=== PATIENT | female | born 1930 | race Caucasian/White ===

== ENCOUNTER → 2017-01-30 | Outpatient (CLI) | payer MEDICARE ==
[~2017-01-30] MED LIST: ALLO100T30 PO; AMLO10TA2 PO; ATEN50TA41 PO; CHOL2000 PO; CYAN500T18 PO; DEXL60CA PO; DIAZ5TAB PO; FENO160T PO; FLUT1AER INH; FOLI0.8T2 PO; LOSA100T6 PO; MAGN200T PO; MONT10TA9 PO; OMEG500C3 PO; PRIM50TA PO; ZOLP10TA5 PO
== END | disposition home or self-care (01) ==
LOC: CFH 11:21
PROVIDERS: ATTEND Internal Medicine Nephrology
DX: I12.9 Hypertensive chronic kidney disease with stage 1 through stage 4 chronic kidney disease, or unspecified chronic kidney disease (principal); D63.1 Anemia in chronic kidney disease; N18.3 Chronic kidney disease, stage 3 (moderate); E55.9 Vitamin D deficiency, unspecified; R73.01 Impaired fasting glucose; R53.83 Other fatigue
CPT/HCPCS: 76770

== ENCOUNTER 2017-03-03 07:27 | Emergency (ER) | payer MEDICARE ==
[~2017-03-03] VITALS: Ht 154.9 cm; Wt 68.0 kg
[~2017-03-03 07:27] MED LIST changes: -DEXL60CA PO; +DEXL60CA2 PO
[2017-03-03 07:33] VITALS: BP 176/70
== END 2017-03-03 08:38 | disposition home or self-care (01) ==
LOC: ED 08:26
DX: B37.9 Candidiasis, unspecified (principal); B37.89 Other sites of candidiasis; B35.4 Tinea corporis; B35.6 Tinea cruris
CPT/HCPCS: 99283

== ENCOUNTER 2017-03-05 07:10 | Emergency (ER) | payer MEDICARE ==
[~2017-03-05] VITALS: Ht 152.4 cm; Wt 68.2 kg
[2017-03-05 07:18] VITALS: BP 192/74
== END 2017-03-05 09:15 | disposition home or self-care (01) ==
LOC: ED 08:22
DX: B37.0 Candidal stomatitis (principal); B35.4 Tinea corporis; Z88.5 Allergy status to narcotic agent
CPT/HCPCS: 99283

== ENCOUNTER → 2019-07-03 | Outpatient (CLI) | payer MEDICARE ==
[~2019-07-03] MED LIST changes: -AMLO10TA2 PO; +AMLO10TA8 PO; +LOSA100T14 PO; -LOSA100T6 PO; +THIA100T67 PO
== END | disposition home or self-care (01) ==
LOC: CFH 09:56
PROVIDERS: ATTEND Physician Assistant Medical
DX: I08.8 Other rheumatic multiple valve diseases (principal); I10 Essential (primary) hypertension; E78.5 Hyperlipidemia, unspecified; Z87.891 Personal history of nicotine dependence
CPT/HCPCS: 93306; 93356

== ENCOUNTER 2019-07-24 13:49 | Outpatient (CLI) | payer MEDICARE | END 2019-07-24 23:59 | disposition home or self-care (01) | LOC: CARD 13:49 | PROVIDERS: ATTEND Physician Assistant Medical | DX: J44.9 Chronic obstructive pulmonary disease, unspecified (principal); R06.00 Dyspnea, unspecified | CPT/HCPCS: 94060; 94726; 94729 ==

== ENCOUNTER 2019-08-29 10:47 | Outpatient (CLI) | payer MEDICARE ==
[~2019-08-29 10:47] MED LIST changes: +MONT10TA11 PO; -MONT10TA9 PO
== END 2019-08-29 23:59 | disposition home or self-care (01) ==
LOC: RAD 10:47
PROVIDERS: ATTEND Nurse Practitioner Family
DX: J98.4 Other disorders of lung (principal); R06.00 Dyspnea, unspecified; I34.0 Nonrheumatic mitral (valve) insufficiency
CPT/HCPCS: 71045; 78582; A9540; A9558

== ENCOUNTER 2019-10-30 20:21 | Emergency (ER) | payer MEDICARE ==
[~2019-10-30] VITALS: Ht 152.4 cm; Wt 58.0 kg
--- NOTE | 2019-10-30 20:42 | NUR ---
THIS IS A 88 YO F BIB EMS FROM HOME W/ C/O CONSTIPATION X1 DAY. HAD 1 LIQUID STOOL YESTERDAY, PT HAS PRESSURE COMING FROM BOTTOM. 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 DENIES ABD PAIN, BACK PAIN. PT REPORTS HX OF SBO. PT RESTING ON [employer] W/ CALL LIGHT IN REACH, HYPERTENSIVE, OTHER VS WDL. AWAITING XR.
--- NOTE | 2019-10-30 22:00 | NUR ---
PT ONLY TOLERATED 250ML OF ENEMA. NO BM AFTER. NOTIFIED.
--- NOTE | 2019-10-30 22:35 | NUR ---
PT TOLERATED 600 ML OF ENEMA. WILL NOTIFY .
[2019-10-30 23:08] VITALS: BP 156/52
--- NOTE | 2019-10-30 23:44 | NUR ---
Patient given discharge instructions and they have confirmed that they understand the instructions. Patient ambulatory with steady gait. Patient provided w/ taxi voucher.
== END 2019-10-30 23:46 | disposition home or self-care (01) ==
LOC: ED 23:00
DX: K59.00 Constipation, unspecified (principal); R10.84 Generalized abdominal pain
CPT/HCPCS: 74021; 99284

== ENCOUNTER 2020-01-03 13:44 | Emergency (ER) | payer MEDICARE ==
[~2020-01-03] VITALS: Ht 157.5 cm; Wt 55.0 kg
[2020-01-03 13:50] VITALS: BP 127/67
--- NOTE | 2020-01-03 15:04 | NUR ---
PT SITTING IN CHAIR WHILE AWAITING XRAY RESULTS.
[2020-01-03] MEDS ORDERED: PINK LADY ENEMA 490 ML BOTTLE PR ONE (15:30)
--- NOTE | 2020-01-03 16:02 | NUR ---
WAITING FOR [facility]Y. YULISA East BED COMFORTABLY
--- NOTE | 2020-01-03 16:50 | NUR ---
DELAY IN GETTING [facility] FROM PHARMACY. WHEN RECEIVED IT PT HAD ALREADY HAD A BOWEL MOVEMENT. [facility] NOT GIVEN
== END 2020-01-03 17:12 | disposition home or self-care (01) ==
LOC: ED 15:59
DX: K59.00 Constipation, unspecified (principal); Z87.891 Personal history of nicotine dependence
CPT/HCPCS: 74018; 99284

== ENCOUNTER 2020-09-30 15:05 | Emergency (ER) | payer MEDICARE ==
[~2020-09-30] VITALS: Ht 152.4 cm; Wt 57.7 kg
[~2020-09-30 15:05] MED LIST changes: +AMLO-211 PO; -AMLO10TA8 PO; -FOLI0.8T2 PO; +FOLI0.8T5 PO; -MONT10TA11 PO; +MONT10TA17 PO
--- NOTE | 2020-09-30 15:22 | NUR ---
EXTRUSION PROCESS OPERATOR: PT TO ROOM FROM LOBBY AT THIS TIME
[2020-09-30 15:36] LABS: BASOPHILS % (AUTO) 1 % (0-1); EOSINOPHILS % (AUTO) 1 % (1-7); LYMPHOCYTES % (AUTO) 17 % (22-44); MEAN CORPUSCULAR HEMOGLOBIN 32.8 pg (27.0-34.8); MEAN CORPUSCULAR HGB CONC 33.6 g/dL (32.4-35.8); MEAN PLATELET VOLUME 7.4 fL (7.4-10.4); MONOCYTES % (AUTO) 7 % (2-9); NEUTROPHILS % (AUTO) 74 % (42-75); PLATELET COUNT 312 x10^3/uL (130-400); RED BLOOD COUNT 4.13 x10^6/uL (3.82-5.3); RED CELL DISTRIBUTION WIDTH 13.7 % (9.6-15.2)
[2020-09-30 15:40] LABS: MD NO
[2020-09-30 15:46] LABS: ALANINE AMINOTRANSFERASE 43 U/L (12-78); ALBUMIN 3.7 g/dL (3.4-5.0); ANION GAP 8 mmol/L (5-15); CALCIUM 9.1 mg/dL (8.5-10.1); CHLORIDE 102 mmol/L (98-107); CREATININE 0.87 mg/dL (0.55-1.02)
[2020-09-30 15:50] LABS: ALKALINE PHOSPHATASE 69 U/L (45-117); BILIRUBIN,TOTAL 0.3 mg/dL (0.2-1.0); TOTAL PROTEIN 7.3 g/dL (6.4-8.2); TROPONIN I < 0.015 ng/mL (0.000-0.045)
--- NOTE | 2020-09-30 16:35 | NUR ---
PT HERE FOR REFILL OF SYMBACORT. PT DENIES ANY AT HOME RESCUE INHALER. PT ADVISED TO COME DOWN HERE BY PCP. PT IN ROOM ON 4 LPM O2 VIA NC.
[2020-09-30] MEDS ORDERED: ALBUTEROL/IPRATROPIUM 2.5MG/0.5MG, 3 ML ONE (16:57)
[2020-09-30 17:00] VITALS: BP 161/71
[2020-09-30] MEDS ORDERED: ALBUTEROL/IPRATROPIUM 2.5MG/0.5MG, 3 ML NPPB ONE (17:00)
--- NOTE | 2020-09-30 17:01 | NUR ---
BREAK RN: PT RESTING IN ROOM. VS STABLE. NO ACUTE DISTRESS NOTED. WILL CONTINUE TO MONITOR.
--- NOTE | 2020-09-30 17:25 | NUR ---
REPORT GIVE TO BRANDY SINGH
== END 2020-09-30 18:30 | disposition home or self-care (01) ==
LOC: ED 17:17
DX: J44.1 Chronic obstructive pulmonary disease with (acute) exacerbation (principal); R06.02 Shortness of breath; R06.00 Dyspnea, unspecified; R07.89 Other chest pain; R05 Cough; Z87.891 Personal history of nicotine dependence
CPT/HCPCS: 36415; 71045; 80053; 83735; 83880; 84484; 85025; 93005; 94640; 99285

== ENCOUNTER 2020-10-26 13:09 | Emergency (ER) | payer MEDICARE ==
[~2020-10-26] VITALS: Ht 152.4 cm; Wt 56.6 kg
[2020-10-26 14:14] LABS: BASOPHILS % (AUTO) 1 % (0-1); EOSINOPHILS % (AUTO) 1 % (1-7); LYMPHOCYTES % (AUTO) 12 % (22-44); MEAN CORPUSCULAR HEMOGLOBIN 32.6 pg (27.0-34.8); MEAN CORPUSCULAR HGB CONC 33.7 g/dL (32.4-35.8); MEAN PLATELET VOLUME 7.6 fL (7.4-10.4); MONOCYTES % (AUTO) 7 % (2-9); NEUTROPHILS % (AUTO) 80 % (42-75); PLATELET COUNT 294 x10^3/uL (130-400); RED BLOOD COUNT 4.32 x10^6/uL (3.82-5.3); RED CELL DISTRIBUTION WIDTH 13.4 % (9.6-15.2)
[2020-10-26 14:15] LABS: MD NO
[2020-10-26 14:26] LABS: ALANINE AMINOTRANSFERASE 37 U/L (12-78); ALBUMIN 3.8 g/dL (3.4-5.0); ANION GAP 7 mmol/L (5-15); CHLORIDE 104 mmol/L (98-107); CREATININE 0.89 mg/dL (0.55-1.02)
[2020-10-26 14:28] LABS: ALKALINE PHOSPHATASE 61 U/L (45-117); BILIRUBIN,TOTAL 0.3 mg/dL (0.2-1.0); TOTAL PROTEIN 7.5 g/dL (6.4-8.2)
--- NOTE | 2020-10-26 14:49 | NUR ---
macadam raker: pt from lobby to room 26
--- NOTE | 2020-10-26 15:17 | NUR ---
PT C/O OF CONSTIPATION FOR 3 DAYS. DENIES PAIN IN ABDOMEN. STATES TROUBLE URINATING. DENIES N/V. 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
--- NOTE | 2020-10-26 15:18 | NUR ---
PT ATTCHED TO MONITORS. VSS. PT IN NAD. CALL LLIGHT WITHIN REAch.
[2020-10-26] MEDS ORDERED: PINK LADY ENEMA 490 ML BOTTLE PR ONE (15:30)
--- NOTE | 2020-10-26 16:26 | NUR ---
PT RESTING IN BD AWAITING ENEMA. PTY IN NAD. ATTACYHED TO MONITORS. CALL LIGGHT WITHIN REACH.
--- NOTE | 2020-10-26 16:49 | NUR ---
PINK LADY [employer] INITIATED ON PT. PT TOLERATED WELL. SCANT BLOOD LEAKED WITH ENEMA FLUID. PT CURRETLY LYING IN BED AWAITING TO GO ON COMMODE WHEN SHE IS READY. CALL LIGHT WITHIN REACH.
--- NOTE | 2020-10-26 16:58 | NUR ---
PT ON COMMODE. CALL LIGHT WITHIN REACH
--- NOTE | 2020-10-26 17:18 | NUR ---
PT HAD SMALL, BROWN, SOFT BM. PT WAS ALSO ABLE TO URINATE. WAS HAVING TROUBLE URINATING BEFORE SHE CAME INTO ED. PT GETTING DRESSED.
[2020-10-26 17:26] VITALS: BP 181/91
--- NOTE | 2020-10-26 17:27 | NUR ---
PT READY TO GO HOME. LEAVING ON A WHEELCHAIR WITH O2 CONNECTED.
== END 2020-10-26 17:36 | disposition home or self-care (01) ==
LOC: ED 17:30
DX: K59.00 Constipation, unspecified (principal); R10.84 Generalized abdominal pain; J44.9 Chronic obstructive pulmonary disease, unspecified
CPT/HCPCS: 36415; 74021; 80053; 83690; 85025; 99284

== ENCOUNTER 2021-02-25 12:58 | Outpatient (CLI) | payer MEDICARE | END 2021-02-25 23:59 | disposition home or self-care (01) | LOC: CVU 12:58 → RAD 23:59 | PROVIDERS: ATTEND Internal Medicine Cardiovascular Disease | DX: I08.3 Combined rheumatic disorders of mitral, aortic and tricuspid valves (principal); I11.9 Hypertensive heart disease without heart failure; R06.02 Shortness of breath | CPT/HCPCS: 93306 ==